=== PATIENT | female | born 1975 | race African-American/Black ===

== ENCOUNTER 2023-01-07 19:16 | Emergency (ER) | payer OTHER, SELFPAY ==
--- NOTE | ~2023-01-07 | XR_ITS ---
EXAMINATION: XR ANKLE, RIGHT CLINICAL INFORMATION: Right ankle pain COMPARISON: None available. TECHNIQUE: AP, lateral, and mortise views of the right ankle. FINDINGS: There is moderate lateral malleolar soft tissue swelling. The ankle mortise and subtalar joints are normal. There is no visible acute fracture, dislocation or subluxation seen. XR/XR ankle RT min 3V IMPRESSION: Moderate lateral malleolar soft tissue swelling without any visible acute fracture or dislocation.
[2023-01-07 19:19] VITALS: BP 120/81; PULSE 83; RESP 18; TEMP 36.4; O2SAT 99; BMI 34.7
--- NOTE | 2023-01-07 19:24 | ED_ITS ---
HPI - Extremity Injury (Lower) General Chief Complaint: Extremity Injury, Lower Stated Complaint: Right ankle inj Time Seen by Provider: 01/07/23 20:26 Source: patient Mode of arrival: ambulatory Limitations: no limitations History of Present Illness HPI Narrative: 47-year-old female presents with right ankle pain status post rolling her ankle while walking a dog, she reports that the dog was running around excited, the leash got caught underneath her, she tripped over the dog and ended up rolling her right ankle. She reports that when she rolled her ankle she heard a crack. Reports pain with ambulation, range of motion. Pain is better at rest. Patient reports right ankle very painful, no previous issues with right ankle. When she fell to the ground she did not hit her head or lose consciousness. Patient denies numbness, tingling, chest pain, shortness of breath, headache, vision changes, dizziness and weakness. NIH stroke scale 0. GCS 15 Related Data Previous Rx's Medication Instructions Recorded ketorolac 10 mg tablet 10 mg PO TID PRN pain 5 days #15 01/07/23 tabs Allergies Allergy/AdvReac Type Severity Reaction Status Date / Time No Known Allergies Allergy Verified 01/07/23 19:23 Review of Systems Review of Systems: Constitutional : No Weight loss, No Fever, No Chills, No Fatigue, No Malaise ENT/Mouth : No sore throat, No Rhinorrhea Eyes: No Eye Pain, No Swelling, No Redness Cardiovascular : No Chest Pain, No SOB, No Dyspnea on Exertion, No Orthopnea, No Edema, No Palpitations Respiratory : No Cough, No Sputum, No Wheezing Gastrointestinal : No Nausea, No Vomiting, No Diarrhea, No Constipation, No abdominal Pain, No Hematochezia, No Melena Genitourinary : No Dysuria, No Urinary Frequency, No Hematuria, Musculoskeletal : + joint pain, No Myalgias, + Joint Swelling Skin : No Skin Lesions, No rash Neuro : No Weakness, No Numbness, No Dizziness, No Headache Psych : No Anxiety/Panic, No Depression All other systems reviewed and are negative Yes all other systems are reviewed and are negative [facility] Past Medical History Attestation statement: The following information was validated with the patient. Source: old records reviewed and nursing notes reviewed Social History Social History Advance Directives: No Advance Directives Information Provided: Yes Physical Exam Vital Signs: Vital Signs: Last Vital Signs Temp 97.6 F 01/07/23 19:19 Pulse 83 01/07/23 19:19 Resp 18 01/07/23 19:19 BP 120/81 01/07/23 19:19 Pulse Ox 99 01/07/23 19:19 O2 Del Method Room Air 01/07/23 19:19 BMI result Body Mass Index 34.7 vss Appearance: Alert.? Oriented X3.? No acute distress.? Head: Normocephalic, atraumatic, no step-offs or deformities Eyes: Pupils equal, round and reactive to light.? ENT: Pharynx normal.? Neck: Normal inspection.? Neck supple.? CVS: Normal heart rate and rhythm.? Pulses normal.? Respiratory: No respiratory distress.? Breath sounds normal.? Abdomen: Soft and nontender.? Skin: Skin warm and dry.? Normal skin color.? Normal skin turgor.? Extremities: No lower extremity edema.? No calf ttp. 5/5 strength to bilateral upper and lower extremities + painful range of motion to right ankle. Normal sensation to bilateral lower extremities. 2+ dorsalis pedis, anterior tibialis and posterior tibialis pulses equal bilateral. No foot drop. Normal capillary refill. Neuro: Oriented X 3.? No motor deficit.? No sensory deficit. CN 2-12 intact Course Course Course Narrative: This is an RME: Additional HPI, ROS, PE not included below will be deferred to primary provider. 47-year-old female presents with right ankle pain status post tripping while walking her dog, reports she tripped over rolling her right ankle. She heard a crack. Denies numbness and tingling. Cannot weight. Plan at this time imaging Reevaluation(s) Reevaluation #1: Wet read of x-ray with no fractures or dislocations. Will place patient in air cast and give her crutches. Will have her follow up with the orthopedic team. Will give Toradol for pain Educated patient on diagnosis and treatment plan, answered all question, patient verbalizes understanding. At this time patient will be discharged home, advised to return with new or worsening symptoms. Educated on worrisome signs and symptoms and when to return. At this time I feel comfortable discharge home. Time: 20:20 Medications Administered Discontinued Medications Generic Name Dose Route Start Last Admin Trade Name Rachelle PRN Reason Stop Dose Admin Ketorolac Tromethamine 30 mg 01/07/23 20:20 01/07/23 20:28 Ketorolac Tromethamine 15 Mg/Ml Vial IM 01/07/23 20:21 30 mg ONCE ONE Administration Medical Decision Making Medical Decision Making [facility] Narrative: 2021 47-year-old female presents with right ankle pain status post trip and fall while walking a dog. Denies numbness and tingling Physical exam significant for No lower extremity edema.? No calf ttp. 5/5 strength to bilateral upper and lower extremities + painful range of motion to right ankle. Normal sensation to bilateral lower extremities. 2+ dorsalis pedis, anterior tibialis and posterior tibialis pulses equal bilateral. No foot drop. Normal capillary refill. Concern for sprain or strain. Unlikely fracture, dislocation. No signs of neurovascular compromise or threatened limb. Plan imaging Differential Diagnosis Differential Diagnoses: The differential diagnosis associated with the presentation includes Concern for sprain or strain. Unlikely fracture, dislocation. No signs of neurovascular compromise or threatened limb. Admission/Observation Consideration of admission/observation: Escalation of care including admission/observation considered Independent Interpretation I performed an independent interpretation of an: Plain X-Ray (unremarkable ) Radiology Impression Discussion of test interpretation with radiology: I have reviewed the radiologist's reading. Core Measures AMI core measures followed: Yes Measure exclusions: not indicated Critical Care Time Critical Care Time Critical Care Time: No Discharge Plan Discharge Clinical Impression: Right ankle sprain Patient Disposition: Home, Self-Care Instructions: Ankle Sprain (ED), Crutch Instructions (ED), R.I.C.E. Treatment (ED) Additional Instructions: Take your medications as prescribed. If you were prescribed antibiotics today, it is important that you take your medication to their entirety, do not skip any doses, do not finish them early. Follow-up with your primary care provider this week. Follow-up with the orthopedic team if needed Return to the emergency department with new or worsening symptoms. Such as fevers, chills, chest pain, shortness of breath, nausea, vomiting, dizziness, headache, vision changes, lethargy In case of emergency call 911 Toradol has been sent to your pharmacy, you tolerated this well in the department. Please take this as prescribed do not take this with ibuprofen, or other NSAIDs, do not mix this with alcohol. Side effects of this medication including increased risk for bleeding and possible kidney injury. Prescriptions: New ketorolac 10 mg tablet 10 mg PO TID PRN (Reason: pain) 5 Days Qty: 15 0RF Referrals: [facility] [place] Orthopedic Surgeons [Provider Group] - 1 week Physician,None [Primary Care Provider] - 2 days Stand Alone Forms: Work/School Release Interventions: ED Discharge Assessment Last Done: 01/07/23 20:32 Discharge Date/Time: 01/07/23 20:33
[2023-01-07] MEDS: Ketorolac Tromethamine 15 MG/ML VIAL 30 MG IM (20:28)
== END 2023-01-07 20:33 | disposition home or self-care (01) ==
LOC: HO.ED 20:27
PROVIDERS: Emergency Provider Student in an Organized Health Care Education/Training Program
DX: S93.401A Sprain of unspecified ligament of right ankle, initial encounter (principal); X50.1XXA Overexertion from prolonged static or awkward postures, initial encounter; Y93.K1 Activity, walking an animal; Y92.480 Sidewalk as the place of occurrence of the external cause; Y99.9 Unspecified external cause status
CPT/HCPCS: 73610; 96372; 99283; 99284; J1885